=== PATIENT | female | born 1955 | race Caucasian/White ===

== ENCOUNTER → 2019-03-19 | Outpatient (REF) | payer OTHER | LOC: M LAB LCGH 11:49 | PROVIDERS: ATTEND Family Medicine | DX: Z12.4 Encounter for screening for malignant neoplasm of cervix (principal) ==

== ENCOUNTER → 2021-10-04 | Outpatient (CLI) | payer MEDICARE ==
[~2021-10-04] MED LIST: ACET-897 PO; SYNT50TA PO; TRIA37.5 PO
== END ==
LOC: M LABSMTC 09:05
PROVIDERS: ATTEND Anesthesiology
DX: Z11.52 Encounter for screening for COVID-19 (principal); Z20.822 Contact with and (suspected) exposure to COVID-19

== ENCOUNTER 2021-10-05 08:24 | Day surgery (SDC) | payer MEDICARE ==
[~2021-10-05] VITALS: Ht 162.6 cm; Wt 70.8 kg
[~2021-10-05 08:24] MED LIST changes: -ACET-897 PO; +LIDOCAINE 2% 100MG/5ML SDV (FOR ANES.) As Ordered ONE; +LR 1,000 ML IV ONE; +MIDAZOLAM INJ 2MG/2ML VIAL (J2250 PER 1MG) As Ordered ONE; +ONDANSETRON 4MG/2ML VIAL As Ordered ONE; +dexameTHASONE 4 MG/ML 1ML VIAL (J1100 PER 1MG) As Ordered ONE; +fentaNYL 100 MCG/2 ML INJECTION As Ordered ONE; +propofoL 200 MG/20 ML VIAL As Ordered ONE
[2021-10-05] MEDS ORDERED: LR 1,000 ML IV SCH ×3 (08:50→12:50)
[2021-10-05] MEDS ORDERED: ACET-897 PO (08:52)
[2021-10-05] MEDS ORDERED: KETOROLAC 60MG 2ML VIAL As Ordered ONE (11:27)
[2021-10-05] MEDS ORDERED: fentaNYL 100 MCG/2 ML INJECTION IV PRN (12:00)
[2021-10-05] MEDS ORDERED: oxyCODONE 5MG TAB PO PRN (12:00)
[2021-10-05] MEDS ORDERED: ONDANSETRON 4MG/2ML VIAL IV PRN (12:00)
[2021-10-05] MEDS ORDERED: IBUPROFEN 600MG TAB PO PRN (12:50)
[2021-10-05 13:40] VITALS: BP 178/71
== END 2021-10-05 13:43 | disposition home or self-care (01) ==
LOC: M SDC 08:24
PROVIDERS: ATTEND Obstetrics & Gynecology
CPT/HCPCS: 58558; 88305; J1100; J1885; J2250; J2405; J3010